=== PATIENT | male | born 1940 | race Caucasian/White ===

== ENCOUNTER → 2018-02-10 12:16 | Outpatient (CLI) | payer OTHER, SELFPAY ==
--- NOTE | 2018-02-11 16:29 | PM.PFT.1 ---
Pulmonary Function Test Referral & Results Date Patient Seen: 02/10/18 Requesting provider: Brandyn Marcos Indication: Shortness of breath Results: The spirometry demonstrates an FVC of 1.74 L which is 69% of predicted. The FEV1 was measured at 1.16 L which is 62% of predicted. The FEV1/FVC ratio was 67 which is 88% of predicted. Following the administration of bronchodilator there was no appreciable change. Lung volumes show an SVC of 1.73 L which is 60% of predicted. The diffusing capacity was measured at 21.01 which is 97% of predicted. The maximum voluntary ventilation was reduced Interpretation: This study demonstrates moderate obstructive lung disease based on reduction in FEV1 without evidence of significant benefit following bronchodilator administration There is also [id number] restrictive lung disease present based on reduction in lung volumes Diffusing capacity is normal
== END ==
PROVIDERS: Visit Provider Student in an Organized Health Care Education/Training Program
DX: R06.02 Shortness of breath (principal)
CPT/HCPCS: 94010; 94060; 94729